=== PATIENT | female | born 1960 | race Caucasian/White ===

== ENCOUNTER 2016-08-06 14:02 | Inpatient (IN) | payer MEDICARE, MEDICAID ==
[2016-08-06] MEDS ORDERED: NORMAL SALINE 1000 ML 1,000 ML IV ONE ×2 (14:27→16:35)
--- NOTE | 2016-08-06 14:32 | ER Document Report ---
ED General - General Mode of Arrival: Medic Information source: Friend - caregiver Cannot obtain history due to: Mentally challenged, Altered mental status TRAVEL OUTSIDE OF THE [place] IN LAST 30 DAYS: No - HPI Onset: Other - see narrative Onset/Duration: Gradual Similar symptoms previously: No Recently seen / treated by doctor: Yes <ANTHONY SHAH - Last Filed: 08/06/16 17:54> <LARRY DUGAN - Last Filed: 08/06/16 22:28> - General Chief Complaint: Altered Mental Status Stated Complaint: ALTERED MENTAL STATUS Notes: Patient is a 56-year-old female with Down's Syndrome that presents to the emergency department today with complaints of "slowly declining health". Caregiver at bedside states that she is with the patient daily as a caregiver and she has noticed that the symptoms mentioned today have "slowly been progressing". Today the caregiver complains of twitching, decreased appetite, new inability to ambulate, and uncontrollably yelling and screaming. Caregiver states at baseline the patient is able to ambulate on her own and was able to carry out a normal conversation. Caregiver states that recently the patient has had an increase in her Risperdal dosage and Cogentin was added. Patient's medical decision maker according to caregiver is her sister who lives in [place] , Megan Linares, . PCP: Elsie Mazariegos (ANTHONY SHAH) - Related Data Allergies/Adverse Reactions: ampicillin [Ampicillin] Allergy (Unknown, Verified 06/29/14 09:53) Home Medications: Current Home Medications Benztropine Mesylate [Cogentin 1 mg Tablet] 1 mg PO DAILY 08/06/16 [History] Fluticasone Propionate [Flonase Nasal [place] 50 Mcg/[place] 16 gm] 2 spray NASL QAM 08/06/16 [History] Levothyroxine Sodium [Synthroid] 88 mg PO DAILY 08/06/16 [History] Lisinopril [Zestril] 5 mg PO DAILY 08/06/16 [History] Loratadine [Claritin 10 mg Tablet] 10 mg PO DAILY 08/06/16 [History] Nifedipine [Procardia XL 60 mg Tablet] 60 mg PO DAILY 08/06/16 [History] [place]-3/Dha/Epa/Fish Oil [Fish Oil 500 mg Softgel] 2 cap PO BID 08/06/16 [ History] Polyethylene Glycol 3350 [Miralax] 17 gm PO DAILY 08/06/16 [History] Risperidone [Risperdal 1 mg Tablet] 1 mg PO BID 08/06/16 [History] Simvastatin [Zocor 40 mg Tablet] 40 mg PO QHS 08/06/16 [History] Past Medical History - General Information source: [facility] Records - caregiver Cannot obtain history due to: Mentally challenged, Altered mental status - Social History Smoking Status: Never Smoker Cigarette use (# per day): No Chew tobacco use (# tins/day): No Smoking Education Provided: No Frequency of alcohol use: None Drug Abuse: None Lives with: Other - caregiver Family History: Reviewed & Not Pertinent - Past Medical History Cardiac Medical History: Reports: Hx Heart Murmur Pulmonary Medical History: GI Medical History: Musculoskeltal Medical History: Infectious Medical History: Surgical Hx: Negative Past Surgical History: - Immunizations Hx Diphtheria, Pertussis, Tetanus Vaccination: Yes <ANTHONY SHAH - Last Filed: 08/06/16 17:54> Review of Systems - Review of Systems -: Yes ROS unobtainable due to patient's medical condition - Given by caregiver at bedside Constitutional: See HPI, Other - decreased appetite EENT: No symptoms reported Cardiovascular: No symptoms reported Respiratory: No symptoms reported Gastrointestinal: No symptoms reported Genitourinary: No symptoms reported Female Genitourinary: No symptoms reported Musculoskeletal: See HPI, Joint pain - left knee/ankle Skin: No symptoms reported Hematologic/Lymphatic: No symptoms reported Neurological/Psychological: See HPI, Other - "twitching", uncharacteristic behavior (yelling and screaming uncontrollably) -: Yes All other systems reviewed and negative <ANTHONY SHAH - Last Filed: 08/06/16 17:54> Physical Exam <ANTHONY SHAH - Last Filed: 08/06/16 17:54> <LARRY DUGAN - Last Filed: 08/06/16 22:28> - Vital signs Vitals: Temp Pulse Resp BP Pulse Ox 97.2 F 77 12 149/112 H 98 08/06/16 14:14 08/06/16 14:14 08/06/16 14:14 08/06/16 14:14 08/06/16 14:14 - Notes Notes: Physical Exam: General: Down's Syndrome appearance consistent with history, somnolent. HEENT: Normocephalic. Atraumatic. PERRL. Extraocular movements intact. Oropharynx clear. Neck: Supple. Non-tender. Respiratory: No respiratory distress. Clear and equal breath sounds bilaterally. Cardiovascular: Regular rate and rhythm. Abdominal: Normal Inspection. Non-tender. No distension. Normal Bowel Sounds. Back: Non-tender. No deformity or step off. Extremities: Moves all four extremities. Neurological: Responds to painful stimuli. Tremulous. Psychological: unable to assess Skin: Warm. Dry. Normal color. (ANTHONY SHAH) Course - Laboratory Result Diagrams: 08/06/16 15:33 08/06/16 15:33 - Consults Dr. Rodriguez Time consulted: 17:30 Consulted provider: will see as inpatient <ANTHONY SHAH - Last Filed: 08/06/16 17:54> - Laboratory Result Diagrams: 08/06/16 15:33 08/06/16 15:33 <LARRY DUGAN - Last Filed: 08/06/16 22:28> - Re-evaluation Re-evalutation: 08/06/16 Patient is a 56-year-old female the history of Down syndrome who is brought in for altered mental status. Blood work within normal limits initially. Patient initially with stable heart rate and blood pressure, and then Patient began to become hypotensive. Responded to fluids. CT is concerning for pneumonia. Patient was also hypothermic on presentation. Patient was discussed with the hospitalist service. Cultures have been sent. Antibiotics will be initiated. Patient will be [facility] to the [facility]. (LARRY DUGAN) - Vital Signs Vital signs: Temp Pulse Resp BP Pulse Ox 97.2 F 77 20 106/91 H 100 08/06/16 14:14 08/06/16 14:14 08/06/16 20:01 08/06/16 21:01 08/06/16 21:01 - Laboratory Laboratory results interpreted by me: 08/06/16 08/06/16 08/06/16 15:33 15:33 15:33 RBC 3.62 L MCV 102 H MCH 33.9 H Potassium 5.2 H AST 45 H Alkaline Phosphatase 129 H Creatine Kinase 441 H TSH Free T3 pg/mL 08/06/16 15:33 RBC MCV MCH Potassium AST Alkaline Phosphatase Creatine Kinase TSH 7.59 H Free T3 pg/mL 2.66 L Critical Care Note - Critical Care Note Total time excluding time spent on procedures (mins): 90 - evaluation and management of altered mental status, multiple re-evaluations, assessment of hypothermia, management of hypotension, discussion with caregiver, coordination of admission <LARRY DUGAN - Last Filed: 08/06/16 22:28> Discharge <ANTHONY SHAH - Last Filed: 08/06/16 17:54> - Discharge Admitting Provider: [facility] Unit Admitted: I[facility] <LARRY DUGAN - Last Filed: 08/06/16 22:28> - Discharge Clinical Impression: Down syndrome Altered mental status Qualifiers: Altered mental status type: disorientation Qualified Code(s): R41.0 - Disorientation, unspecified Hypotension Qualifiers: Hypotension type: unspecified hypotension type Qualified Code(s): I95.9 - Hypotension, unspecified Pneumonia Qualifiers: Pneumonia type: due to unspecified organism Laterality: right Lung location: upper lobe of lung Qualified Code(s): J18.1 - Lobar pneumonia, unspecified organism Condition: Stable Disposition: ADMITTED INPATIENT Scribe Attestation: 08/06/16 22:28 I personally performed the services described in the documentation, reviewed and edited the documentation which was dictated to the scribe in my presence, and it accurately records my words and actions. (LARRY DUGAN) Scribe Documentation - Scribe Written by iCro:: Ciro Watters, 08/06/2016 1458 acting as scribe for :: Gloria <ANTHONY SHAH - Last Filed: 08/06/16 17:54>
[2016-08-06 15:52] LABS: ABSOLUTE BASOPHILS # (AUTO) 0.1 10^3/uL (0.0-0.2); ABSOLUTE LYMPHOCYTES (AUTO) 0.7 10^3/uL (0.5-4.7); ABSOLUTE MONOCYTES (AUTO) 0.4 10^3/uL (0.1-1.4); ABSOLUTE NEUT (AUTO) 4.5 10^3/uL (1.7-8.2); EOSINOPHILS % (AUTO) 0.8 % (0-6); HEMATOCRIT 36.8 % (36.0-47.0); HEMOGLOBIN 12.3 g/dL (12.0-15.5); HGB HCT DIFFERENCE 0.1; MEAN CORPUSCULAR HEMOGLOBIN 33.9 pg (27.0-33.4); MEAN CORPUSCULAR HGB CONC 33.3 g/dL (32.0-36.0); MEAN CORPUSCULAR VOLUME 102 fl (80-97); MONOCYTES % (AUTO) 7.4 % (3-13); RED BLOOD COUNT 3.62 10^6/uL (3.72-5.28); SEGMENTED NEUTROPHILS % (AUTO) 77.8 % (42-78); VENOUS BLOOD BASE EXCESS 1.8 mmol/L; VENOUS BLOOD HCO3 28.2 mmol/L (20-32); VENOUS BLOOD PH 7.37 (7.30-7.42); WHITE BLOOD COUNT 5.7 10^3/uL (4.0-10.5)
[2016-08-06 15:59] LABS: PROTHROMBIN TIME 13.5 SEC (11.4-15.4)
[2016-08-06 16:20] LABS: ALANINE AMINOTRANSFERASE 36 U/L (9-52); ALBUMIN 3.8 g/dL (3.5-5.0); ALKALINE PHOSPHATASE 129 U/L (38-126); ANION GAP 11 (5-19); ASPARTATE AMINO TRANSFERASE 45 U/L (14-36); BILIRUBIN,DIRECT 0.4 mg/dL (0.0-0.4); BLOOD UREA NITROGEN 14 mg/dL (7-20); CALCIUM 9.8 mg/dL (8.4-10.2); CARBON DIOXIDE 28 mmol/L (22-30); CHLORIDE 103 mmol/L (98-107); CREATININE RESULT 0.96 mg/dL (0.52-1.25); GLUCOSE 110 mg/dL (75-110); POTASSIUM 5.2 mmol/L (3.6-5.0); SODIUM 141.6 mmol/L (137-145)
[2016-08-06 16:41] LABS: APPEARANCE,URINE CLEAR; BILIRUBIN,URINE NEGATIVE (NEGATIVE); GLUCOSE, URINE NEGATIVE (NEGATIVE); KETONES,URINE NEGATIVE (NEGATIVE); LEUKOCYTE ESTERASE,URINE NEGATIVE (NEGATIVE); NITRITE,URINE NEGATIVE (NEGATIVE); PROTEIN,URINE NEGATIVE (NEGATIVE); URINE SPECIFIC GRAVITY 1.006; UROBILINOGEN,URINE NEGATIVE mg/dL (<2.0)
[2016-08-06 17:19] LABS: CREATINE KINASE MB 4.14 ng/mL (<4.55)
[2016-08-06 17:23] LABS: TROPONIN I < 0.012 ng/mL
--- NOTE | 2016-08-06 17:29 | EKG REPORT ---
SEVERITY:- BORDERLINE ECG - SINUS RHYTHM NONSPECIFIC ST-T CHANGES- INFERIOR LEADS : Confirmed by: Leon Villegas MD 06-Aug-2016 17:28:27
[2016-08-06] MEDS ORDERED: CEFTRIAXONE 1 GM/D5W RTU 50 ML IV ONE (18:19)
[2016-08-06] MEDS ORDERED: ACETAMINOPHEN 325 MG TABLET PO PRN (18:25)
[2016-08-06] MEDS ORDERED: NORMAL SALINE 1000 ML 1,000 ML IV PRN (18:25)
[2016-08-06] MEDS ORDERED: LEVALBUTEROL HCL NEB 1.25 MG/3 ML AMPUL NEB PRN (18:25)
[2016-08-06] MEDS ORDERED: GUAIFENESIN SYRP 200 MG/10 ML UDC PO PRN (18:30)
[2016-08-06] MEDS ORDERED: NORMAL SALINE 1000 ML 2,000 ML IV ONE (18:37)
--- NOTE | 2016-08-06 19:16 | PDOC H&P ---
History of Present Illness Admission Date/PCP: 08/06/2016 History of Present Illness: ABBEY TALBOT is a 56 year old female with a past medical history of Down syndrome, mental retardation, hyperlipidemia, hypothyroidism, behavior disorder , and aortic regurgitation who presents to the emergency department with 2 days of minimal unresponsiveness. Patient is in the company of her caregiver reports that she was last normal Friday morning. Approximately 2 weeks ago patient was started on Risperdal and began having some jerking motions after this and subsequent started on Cogentin. Patient normally has a shuffle according to the special education teaching assistant and is now worse. She did complain of some left knee pain. And Friday was started on tramadol. Patient currently responds to pain and some commands, but is far from her baseline. CT of the chest abdomen and pelvis reveals possible right upper lobe infiltrate and cardiomegaly. Patient is referred to the hospital service for pneumonia, hypotension, sepsis. Past Medical History Cardiac Medical History: Reports: Hyperlipidema, Heart Murmur Denies: Coronary Artery Disease, Myocardial Infarction, Hypertension Pulmonary Medical History: Denies: Asthma, Bronchitis, Chronic Obstructive Pulmonary Disease (COPD), Pneumonia Neurological Medical History: Denies: Seizures GI Medical History: Musculoskeltal Medical History: Denies: Arthritis Hematology: Denies: Anemia Past Surgical History Past Surgical History: Unable to obtain secondary to mental status and and availability of power of divorce attorney Past Surgical History: Reports: Other Social History Lives with: Other - caregiver Smoking Status: Never Smoker Frequency of Alcohol Use: None Hx Recreational Drug Use: No Hx Prescription Drug Abuse: No - Advance Directive Resuscitation Status: Other Surrogate healthcare decision maker:: Sister Family History Parental Family History Reviewed: No - unable to obtain due to mental status Children Family History Reviewed: No Sibling(s) Family History Reviewed.: No Medication/Allergy Home Medications: Benztropine Mesylate [Cogentin 1 mg Tablet] 1 mg PO DAILY 08/06/16 Fluticasone Propionate [Flonase Nasal [place] 50 Mcg/[place] 16 gm] 2 spray NASL QAM 08/06/16 Levothyroxine Sodium [Synthroid] 88 mg PO DAILY 08/06/16 Lisinopril [Zestril] 5 mg PO DAILY 08/06/16 Loratadine [Claritin 10 mg Tablet] 10 mg PO DAILY 08/06/16 Nifedipine [Procardia XL 60 mg Tablet] 60 mg PO DAILY 08/06/16 [place]-3/Dha/Epa/Fish Oil [Fish Oil 500 mg Softgel] 2 cap PO BID 08/06/16 Polyethylene Glycol 3350 [Miralax] 17 gm PO DAILY 08/06/16 Risperidone [Risperdal 1 mg Tablet] 1 mg PO BID 08/06/16 Simvastatin [Zocor 40 mg Tablet] 40 mg PO QHS 08/06/16 Allergies/Adverse Reactions: ampicillin [Ampicillin] Allergy (Unknown, Verified 06/29/14 09:53) Review of Systems ROS unobtainable: Due to mental status Physical Exam Vital Signs: Temp Pulse Resp BP Pulse Ox 97.2 F 77 14 88/51 L 100 08/06/16 14:14 08/06/16 14:14 08/06/16 18:00 08/06/16 17:01 08/06/16 18:00 General appearance: PRESENT: mild distress, obese, well-developed, well- nourished Head exam: PRESENT: atraumatic, normocephalic Eye exam: PRESENT: conjunctival injection, conjunctiva pink, EOMI, periorbital swelling, PERRLA. ABSENT: scleral icterus Ear exam: PRESENT: normal external ear exam Mouth exam: PRESENT: dry mucosa, tongue midline, other - Large tongue Throat exam: PRESENT: other - Torres neck Neck exam: ABSENT: JVD, lymphadenopathy, thyromegaly, tracheal deviation Respiratory exam: PRESENT: crackles - Right upper lobe, rhonchi - Right upper lobe, symmetrical, tachypnea, unlabored. ABSENT: accessory muscle use, prolonged expiratory phas, rales, retraction, wheezes Cardiovascular exam: PRESENT: RRR, +S1, +S2, systolic murmur. ABSENT: diastolic murmur, rubs Pulses: PRESENT: normal dorsalis pedis pul Vascular exam: ABSENT: normal capillary refill - Greater than 10 seconds GI/Abdominal exam: PRESENT: hypoactive bowel sounds, normal bowel sounds, soft. ABSENT: distended, firm, guarding, mass, Vee's sign, organolmegaly, rebound , rigid, tenderness Rectal exam: PRESENT: deferred Extremities exam: PRESENT: full ROM. ABSENT: clubbing, pedal edema, tenderness Neurological exam: PRESENT: alert, awake, oriented to person, oriented to place , oriented to time, oriented to situation, CN II-XII grossly intact. ABSENT: motor sensory deficit Psychiatric exam: PRESENT: appropriate affect, normal mood. ABSENT: homicidal ideation, suicidal ideation Skin exam: PRESENT: dry, vesicles - Left knee, warm. ABSENT: cyanosis, intact, rash Results Laboratory Results: 08/06/16 15:33 08/06/16 15:33 08/06/16 08/06/16 08/06/16 15:33 15:33 15:33 WBC 5.7 RBC 3.62 L Hgb 12.3 Hct 36.8 MCV 102 H MCH 33.9 H MCHC 33.3 RDW 14.0 Plt Count 204 Seg Neutrophils % 77.8 Lymphocytes % 13.0 Monocytes % 7.4 Eosinophils % 0.8 Basophils % 1.0 Absolute Neutrophils 4.5 Absolute Lymphocytes 0.7 Absolute Monocytes 0.4 Absolute Eosinophils 0.0 Absolute Basophils 0.1 VBG pH VBG pCO2 VBG HCO3 VBG Base Excess Sodium 141.6 Potassium 5.2 H Chloride 103 Carbon Dioxide 28 Anion Gap 11 BUN 14 Creatinine 0.96 Est GFR ( Amer) > 60 Est GFR (Non-Af Amer) > 60 Glucose 110 Lactic Acid 0.9 Calcium 9.8 Total Bilirubin 1.0 AST 45 H ALT 36 Alkaline Phosphatase 129 H Total Protein 7.0 Albumin 3.8 Serum HCG, Qual Urine Color Urine Appearance Urine pH Ur Specific [place] Urine Protein Urine Glucose (UA) Urine Ketones Urine Blood Urine Nitrite Ur Leukocyte Esterase Urine WBC (Auto) Urine RBC (Auto) 08/06/16 08/06/16 08/06/16 15:33 15:33 16:30 WBC RBC Hgb Hct MCV MCH MCHC RDW Plt Count Seg Neutrophils % Lymphocytes % Monocytes % Eosinophils % Basophils % Absolute Neutrophils Absolute Lymphocytes Absolute Monocytes Absolute Eosinophils Absolute Basophils VBG pH 7.37 VBG pCO2 50.0 VBG HCO3 28.2 VBG Base Excess 1.8 Sodium Potassium Chloride Carbon Dioxide Anion Gap BUN Creatinine Est GFR ( Amer) Est GFR (Non-Af Amer) Glucose Lactic Acid Calcium Total Bilirubin AST ALT Alkaline Phosphatase Total Protein Albumin Serum HCG, Qual NEGATIVE Urine Color YELLOW Urine Appearance CLEAR Urine pH 7.0 Ur Specific [place] 1.006 Urine Protein NEGATIVE Urine Glucose (UA) NEGATIVE Urine Ketones NEGATIVE Urine Blood NEGATIVE Urine Nitrite NEGATIVE Ur Leukocyte Esterase NEGATIVE Urine WBC (Auto) 1 Urine RBC (Auto) 0 08/06/16 08/06/16 15:33 15:33 Creatine Kinase 441 H CK-MB (CK-2) 4.14 Troponin I < 0.012 Impressions: Chest X-Ray 08/06/16 00:00 IMPRESSION: Limited study. No acute changes Head CT 08/06/16 14:32 IMPRESSION: Motion artifact. No acute changes. Chest/Abdomen CTA 08/06/16 16:47 IMPRESSION: 1. Mild reticular nodularity and interstitial prominence of the right upper lobe may indicate chronic interstitial lung disease or atypical pneumonia. No evidence of pulmonary embolus. 2. No acute or suspicious findings of the abdomen. Abdomen/Pelvis CT 08/06/16 16:48 IMPRESSION: 1. Mild reticular nodularity and interstitial prominence of the right upper lobe may indicate chronic interstitial lung disease or atypical pneumonia. No evidence of pulmonary embolus. 2. No acute or suspicious findings of the abdomen. Assessment & Plan - Diagnosis (1) Sepsis Qualifiers: Sepsis type: sepsis due to unspecified organism Qualified Code(s): A41.9 - Sepsis, unspecified organism Is this a current diagnosis for this admission?: YesPlan: This is likely secondary to underlying right upper lobe pneumonia. (2) Altered mental status Qualifiers: Altered mental status type: disorientation Qualified Code(s): R41.0 - Disorientation, unspecified Is this a current diagnosis for this admission?: YesPlan: Feel this is likely secondary to sepsis. Patient appears to be improving somewhat with the initiation of IV fluids. (3) Pneumonia Qualifiers: Pneumonia type: due to unspecified organism Laterality: right Lung location: upper lobe of lung Qualified Code(s): J18.1 - Lobar pneumonia, unspecified organism Is this a current diagnosis for this admission?: YesPlan: Will initiate patient on community-acquired pneumonia with concern for an atypical organism. Initiate patient on Rocephin and Levaquin. Initiate on guaifenesin and pulmonary toilet. Obtain sputum and cultures. Also obtain urine culture. (4) Down syndrome Is this a current diagnosis for this admission?: YesPlan: Will place on bed alarm with sitter. (5) Hypothyroidism Qualifiers: Hypothyroidism type: unspecified Qualified Code(s): E03.9 - Hypothyroidism, unspecified Is this a current diagnosis for this admission?: YesPlan: Will check a TSH, free T3 and free T4. Continue Synthroid in the interim. (6) Hypotension Qualifiers: Hypotension type: unspecified hypotension type Qualified Code(s): I95.9 - Hypotension, unspecified Is this a current diagnosis for this admission?: YesPlan: Feel that this is likely secondary to her sepsis and continued administration of her medication despite illness. Will give patient 2 L bolus to give her a total of 4 L bolus. Goal to maintain a map of 65. (7) Tardive dyskinesia Is this a current diagnosis for this admission?: YesPlan: Will place patient on 50 mg of Benadryl by mouth daily at bedtime. However have concerns that these movements may be secondary to hypercarbia and we will obtain an ABG. (8) Aortic regurgitation Qualifiers: Cardiac valve disease etiology: etiology unspecified Qualified Code( s): I35.1 - Nonrheumatic aortic (valve) insufficiency Is this a current diagnosis for this admission?: YesPlan: Will consider repeat echocardiography. (9) Obesity Qualifiers: Obesity type: unspecified obesity type Obesity severity: unspecified obesity severity Qualified Code(s): E66.9 - Obesity, unspecified Is this a current diagnosis for this admission?: YesPlan: Will consult dietary. - Time Time Spent: 50 to 70 Minutes Medications reviewed and adjusted accordingly: Yes - Inpatient Certification Based on my medical assessment, after consideration of the patient's comorbidities, presenting symptoms, or acuity I expect that the services needed warrant INPATIENT care.: Yes I certify that my determination is in accordance with my understanding of Medicare's requirements for reasonable and necessary INPATIENT services [42 CFR 412.3e].: Yes Medical Necessity: Need For IV Fluids, Need For Continuous Telemetry Monitoring , Need for Nebulizer Therapy and Monitoring of Response, Need for IV Antibiotics , Risk of Complication if Not Cared For in Hospital Post Hospital Care: D/C B[employer] Operators Supervisor Documentation
[2016-08-06 19:53] LABS: FREE T3 2.66 pg/mL (2.77-5.27)
[2016-08-06 20:06] LABS: THYROID STIMULATING HORMONE 7.59 uIU/mL (0.47-4.68)
[2016-08-06] MEDS: IPRATROPIUM/ALBUTEROL 0.5-2.5 MG/3 ML AMPUL NEB SCH (20:19)
[2016-08-06] MEDS: DIPHENHYDRAMINE HCL 50 MG CAPSULE PO SCH (22:58)
[2016-08-06] MEDS: OMEGA-3 ACID ETHYL ESTERS 1 GM CAPSULE PO SCH (22:58)
[2016-08-06] MEDS: LEVOFLOXACIN 750 MG/D5W RTU 750 MG/150 ML RTUPB IV SCH (23:02)
[2016-08-07 00:55] LABS: ARTERIAL BLOOD BASE EXCESS -1.2 mmol/L; ARTERIAL BLOOD O2 SATURATION 96.9 % (94-98)
[2016-08-07 03:59] LABS: ANION GAP 11 (5-19); BLOOD UREA NITROGEN 9 mg/dL (7-20); CALCIUM 8.9 mg/dL (8.4-10.2); CARBON DIOXIDE 23 mmol/L (22-30); CHLORIDE 112 mmol/L (98-107); CREATININE RESULT 0.77 mg/dL (0.52-1.25); GLUCOSE 102 mg/dL (75-110); POTASSIUM 4.7 mmol/L (3.6-5.0); SODIUM 145.6 mmol/L (137-145)
[2016-08-07 04:01] LABS: ABSOLUTE EOSINOPHILS # (AUTO) 0.1 10^3/uL (0.0-0.6); ABSOLUTE LYMPHOCYTES (AUTO) 1.1 10^3/uL (0.5-4.7); ABSOLUTE MONOCYTES (AUTO) 0.6 10^3/uL (0.1-1.4); ABSOLUTE NEUT (AUTO) 5.3 10^3/uL (1.7-8.2); BASOPHILS % (AUTO) 0.6 % (0-2); EOSINOPHILS % (AUTO) 0.7 % (0-6); HEMATOCRIT 33.6 % (36.0-47.0); HEMOGLOBIN 11.7 g/dL (12.0-15.5); HGB HCT DIFFERENCE 1.5; MEAN CORPUSCULAR HEMOGLOBIN 35.1 pg (27.0-33.4); MEAN CORPUSCULAR HGB CONC 34.9 g/dL (32.0-36.0); MEAN CORPUSCULAR VOLUME 101 fl (80-97); MONOCYTES % (AUTO) 8.5 % (3-13); RED BLOOD COUNT 3.35 10^6/uL (3.72-5.28); RED CELL DISTRIBUTION WIDTH 13.8 % (11.5-14.0); SEGMENTED NEUTROPHILS % (AUTO) 74.2 % (42-78); WHITE BLOOD COUNT 7.2 10^3/uL (4.0-10.5)
[2016-08-07] MEDS: LANSOPRAZOLE 15 MG TAB.RAP.DR PO SCH ×2 (05:38→18:13)
[2016-08-07] MEDS ORDERED: LEVOTHYROXINE SODIUM 0.088 MG TABLET PO SCH ×2 (08:00)
[2016-08-07] MEDS: IPRATROPIUM/ALBUTEROL 0.5-2.5 MG/3 ML AMPUL NEB SCH ×4 (08:06→20:17)
[2016-08-07] MEDS ORDERED: EPA PO SCH (10:00)
[2016-08-07] MEDS ORDERED: DHA PO SCH (10:00)
[2016-08-07] MEDS ORDERED: (PENDING PHARMACY ID) (Polyethylene Glycol 3350 [Miralax] 17 GM) PO SCH (10:00)
[2016-08-07] MEDS ORDERED: OMEGA PO SCH (10:00)
[2016-08-07] MEDS ORDERED: FISH OIL PO SCH (10:00)
[2016-08-07] MEDS ORDERED: NORMAL SALINE 1000 ML 1,000 ML IV PRN (10:21)
[2016-08-07] MEDS: ENOXAPARIN SODIUM INJ 40 MG/0.4 ML DISP.SYRIN SUBCUT SCH (10:36)
[2016-08-07] MEDS: OMEGA-3 ACID ETHYL ESTERS 1 GM CAPSULE PO SCH ×2 (10:37→21:23)
[2016-08-07] MEDS: LEVOTHYROXINE SODIUM 0.1 MG TABLET PO SCH (10:37)
[2016-08-07] MEDS: LACTOBACILLUS ACIDOPHILUS 250 MG TAB PO SCH ×2 (10:38→18:13)
[2016-08-07] MEDS: FLUTICASONE NASAL SPRAY 50 MCG/SPRY 120 SPRAY/16 GM NASL SCH (10:38)
[2016-08-07] MEDS: POLYETHYLENE GLYCOL 3350 POWDER 17 GM/1 PACKET PO SCH (10:38)
[2016-08-07] MEDS: LORATADINE 10 MG TABLET PO SCH (10:38)
[2016-08-07 13:08] LABS: URINE CREATININE 16.5 mg/dL (15-278)
--- NOTE | 2016-08-07 15:21 | PDOC PROGRESS REPORT ---
Subjective Progress Note for:: 08/07/16 Subjective:: Patient reports she's breathing better than yesterday. She is awake. Her mental retardation does limit the full review of systems. She denies any complaints. She does state she doesn't feel very well. Physical Exam Vital Signs: Temp Pulse Resp BP Pulse Ox 98.6 F 106 H 16 122/50 L 93 08/07/16 05:35 08/07/16 05:35 08/07/16 05:35 08/07/16 03:24 08/07/16 05:35 Intake & Output 08/06/16 08/07/16 08/08/16 06:59 06:59 06:59 Intake Total 2800 Output Total 5500 Balance -2700 Weight 71.7 kg Exam: General: Awake alert and answers questions somewhat appropriately, no acute respiratory distress HEENT: AT/NC, PERRL, EOMI, oropharynx is dry, pink, no scleral icterus, no conjunctival injection Neck: No JVD, trachea midline Chest: Rhonchi right upper lobe CV: Regular rate and rhythm, normal S1 and S2, no rub or gallop; +3/6 sm rusb Abdomen: Soft, nontender to palpation, nondistended, active bowel sounds; no rebound, rigidity, or guarding Extremities: No cyanosis, clubbing or edema Neuro: Cranial nerves II through XII are grossly intact without focal deficits Psych: Normal mood and affect Results Laboratory Results: 08/07/16 03:40 08/07/16 03:40 08/07/16 08/07/16 08/07/16 00:47 03:40 03:40 WBC 7.2 RBC 3.35 L Hgb 11.7 L Hct 33.6 L MCV 101 H MCH 35.1 H MCHC 34.9 RDW 13.8 Plt Count 169 Seg Neutrophils % 74.2 Lymphocytes % 16.0 Monocytes % 8.5 Eosinophils % 0.7 Basophils % 0.6 Absolute Neutrophils 5.3 Absolute Lymphocytes 1.1 Absolute Monocytes 0.6 Absolute Eosinophils 0.1 Absolute Basophils 0.0 Carbonic Acid 1.08 HCO3/H2CO3 Ratio 21:1 ABG pH 7.42 ABG pCO2 35.9 ABG pO2 87.8 ABG HCO3 22.9 ABG O2 Saturation 96.9 ABG Base Excess -1.2 FiO2 2L Sodium 145.6 H Potassium 4.7 Chloride 112 H Carbon Dioxide 23 Anion Gap 11 BUN 9 Creatinine 0.77 Est GFR ( Amer) > 60 Est GFR (Non-Af Amer) > 60 Glucose 102 Calcium 8.9 08/06/16 08/07/16 21:38 03:40 Troponin I 0.012 0.017 Impressions: Chest X-Ray 08/06/16 00:00 IMPRESSION: Limited study. No acute changes Head CT 08/06/16 14:32 IMPRESSION: Motion artifact. No acute changes. Chest/Abdomen CTA 08/06/16 16:47 IMPRESSION: 1. Mild reticular nodularity and interstitial prominence of the right upper lobe may indicate chronic interstitial lung disease or atypical pneumonia. No evidence of pulmonary embolus. 2. No acute or suspicious findings of the abdomen. Abdomen/Pelvis CT 08/06/16 16:48 IMPRESSION: 1. Mild reticular nodularity and interstitial prominence of the right upper lobe may indicate chronic interstitial lung disease or atypical pneumonia. No evidence of pulmonary embolus. 2. No acute or suspicious findings of the abdomen. Assessment & Plan - Diagnosis (1) Sepsis Qualifiers: Sepsis type: sepsis due to unspecified organism Qualified Code(s): A41.9 - Sepsis, unspecified organism Is this a current diagnosis for this admission?: YesPlan: This is likely secondary to underlying right upper lobe pneumonia. (2) Altered mental status Qualifiers: Altered mental status type: disorientation Qualified Code(s): R41.0 - Disorientation, unspecified Is this a current diagnosis for this admission?: YesPlan: Feel this is likely secondary to sepsis. Patient appears to be improving but is not yet close to baseline. Continue sitter. (3) Pneumonia Qualifiers: Pneumonia type: due to unspecified organism Laterality: right Lung location: upper lobe of lung Qualified Code(s): J18.1 - Lobar pneumonia, unspecified organism Is this a current diagnosis for this admission?: YesPlan: Patient receiving treatment for community-acquired pneumonia with concern for an atypical organism. Patient on Rocephin and Levaquin, day #2 of 10. On guaifenesin and pulmonary toilet. Obtain sputum culture. (4) Down syndrome Is this a current diagnosis for this admission?: YesPlan: Will place on bed alarm with sitter. (5) Hypothyroidism Qualifiers: Hypothyroidism type: unspecified Qualified Code(s): E03.9 - Hypothyroidism, unspecified Is this a current diagnosis for this admission?: YesPlan: Patient's TSH is found to be elevated and her free T4 and free T3 are found to be low. Will increase her to 100 g of Synthroid by mouth every 6 a.m. (6) Hypotension Qualifiers: Hypotension type: unspecified hypotension type Qualified Code(s): I95.9 - Hypotension, unspecified Is this a current diagnosis for this admission?: YesPlan: This has resolved. Will decrease IV fluids and encourage by mouth intake of fluid. (7) Tardive dyskinesia Is this a current diagnosis for this admission?: YesPlan: Will place patient on 50 mg of Benadryl by mouth daily at bedtime. Movements appear to have resolved now that Risperdal and Cogentin have been stopped. (8) Aortic regurgitation Qualifiers: Cardiac valve disease etiology: etiology unspecified Qualified Code( s): I35.1 - Nonrheumatic aortic (valve) insufficiency Is this a current diagnosis for this admission?: YesPlan: Will consider repeat echocardiography. (9) Obesity Qualifiers: Obesity type: unspecified obesity type Obesity severity: unspecified obesity severity Qualified Code(s): E66.9 - Obesity, unspecified Is this a current diagnosis for this admission?: YesPlan: Will consult dietary. 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
[2016-08-07] MEDS: CEFTRIAXONE 1 GM/D5W RTU 1 GM/50 ML RTUPB IV SCH (18:12)
[2016-08-07] MEDS: LEVOFLOXACIN 750 MG/D5W RTU 750 MG/150 ML RTUPB IV SCH (21:21)
[2016-08-07] MEDS: DIPHENHYDRAMINE HCL 50 MG CAPSULE PO SCH (21:24)
[2016-08-07] MEDS: NORMAL SALINE 1000 ML 1,000 ML IV PRN (21:24)
[2016-08-08 04:28] LABS: ABSOLUTE LYMPHOCYTES (AUTO) 0.8 10^3/uL (0.5-4.7); ABSOLUTE MONOCYTES (AUTO) 0.4 10^3/uL (0.1-1.4); ABSOLUTE NEUT (AUTO) 5.9 10^3/uL (1.7-8.2); BASOPHILS % (AUTO) 0.6 % (0-2); EOSINOPHILS % (AUTO) 0.6 % (0-6); HEMATOCRIT 32.3 % (36.0-47.0); HEMOGLOBIN 11.3 g/dL (12.0-15.5); HGB HCT DIFFERENCE 1.6; LYMPHOCYTES % (AUTO) 11.4 % (13-45); MEAN CORPUSCULAR VOLUME 100 fl (80-97); MONOCYTES % (AUTO) 6.1 % (3-13); RED BLOOD COUNT 3.23 10^6/uL (3.72-5.28); SEGMENTED NEUTROPHILS % (AUTO) 81.3 % (42-78); WHITE BLOOD COUNT 7.3 10^3/uL (4.0-10.5)
[2016-08-08 04:45] LABS: ANION GAP 10 (5-19); BLOOD UREA NITROGEN 8 mg/dL (7-20); CALCIUM 8.9 mg/dL (8.4-10.2); CARBON DIOXIDE 26 mmol/L (22-30); CHLORIDE 107 mmol/L (98-107); GLUCOSE 91 mg/dL (75-110); POTASSIUM 4.2 mmol/L (3.6-5.0); SODIUM 142.5 mmol/L (137-145)
[2016-08-08] MEDS: LANSOPRAZOLE 15 MG TAB.RAP.DR PO SCH ×2 (06:11→16:47)
[2016-08-08] MEDS: LEVOTHYROXINE SODIUM 0.1 MG TABLET PO SCH (07:59)
[2016-08-08] MEDS: ENOXAPARIN SODIUM INJ 40 MG/0.4 ML DISP.SYRIN SUBCUT SCH (07:59)
[2016-08-08] MEDS: IPRATROPIUM/ALBUTEROL 0.5-2.5 MG/3 ML AMPUL NEB SCH ×4 (08:05→20:44)
[2016-08-08] MEDS: LORATADINE 10 MG TABLET PO SCH (09:08)
[2016-08-08] MEDS: FLUTICASONE NASAL SPRAY 50 MCG/SPRY 120 SPRAY/16 GM NASL SCH (09:09)
[2016-08-08] MEDS: LACTOBACILLUS ACIDOPHILUS 250 MG TAB PO SCH ×2 (09:09→16:47)
[2016-08-08] MEDS: OMEGA-3 ACID ETHYL ESTERS 1 GM CAPSULE PO SCH ×2 (09:09→21:53)
[2016-08-08] MEDS: POLYETHYLENE GLYCOL 3350 POWDER 17 GM/1 PACKET PO SCH (09:09)
--- NOTE | 2016-08-08 09:30 | Physician Advisory Note ---
Physician Advisor ProgressNote .: Pursuant to the plan for [facility], I have reviewed the medical record for this patient. Physician Advisor Statement: Dx.s to consider documentin. "Acute Hypernatremia, likely due to ____" [AMS w/associated decreased liquid intake causing intravascular volume depletion?] 2. "Hypoxemia" (Came in w/sat 98% on 5L O2, sat dropped to 82% & 75% on __L O2 on 1st PM per VS record, & O2 was given - if there was evidence of increased work of breathing at the time, we could capture dx Ac Resp Failure) For coders: Pt came in w/hypothermia, AMS (total GCS of 9), then became hypotensive to 77/ 41 (after initial hypertension), tachypneic, tachycardic, w/hypoxemia - these findings support dx of sepsis due to RUL atypical PNA. She therefore met both Sepsis-2 & Sepsis-3 dx-ic criteria. CK
[2016-08-08] MEDS: NORMAL SALINE 1000 ML 1,000 ML IV PRN (15:34)
[2016-08-08] MEDS: CEFTRIAXONE 1 GM/D5W RTU 1 GM/50 ML RTUPB IV SCH (16:48)
--- NOTE | 2016-08-08 19:02 | PDOC PROGRESS REPORT ---
Subjective Progress Note for:: 08/08/16 Subjective:: Patient seen earlier today on morning rounds. Patient reports she's breathing better than yesterday. She is resting comfortably. Her mental retardation does limit the full review of systems. She denies any complaints. Physical Exam Vital Signs: Temp Pulse Resp BP Pulse Ox 98.6 F 75 24 H 111/43 L 95 08/08/16 11:32 08/08/16 15:34 08/08/16 15:34 08/08/16 11:32 08/08/16 15:34 Intake & Output 08/07/16 08/08/16 08/09/16 06:59 06:59 06:59 Intake Total 2800 1400 Output Total 5500 3425 Balance -2699 -2024 Weight 71.7 kg 69.1 kg Results Laboratory Results: 08/08/16 04:13 08/08/16 04:13 08/08/16 08/08/16 04:13 04:13 WBC 7.3 RBC 3.23 L Hgb 11.3 L Hct 32.3 L MCV 100 H MCH 35.0 H MCHC 35.0 RDW 14.0 Plt Count 152 Seg Neutrophils % 81.3 H Lymphocytes % 11.4 L Monocytes % 6.1 Eosinophils % 0.6 Basophils % 0.6 Absolute Neutrophils 5.9 Absolute Lymphocytes 0.8 Absolute Monocytes 0.4 Absolute Eosinophils 0.0 Absolute Basophils 0.0 Sodium 142.5 Potassium 4.2 Chloride 107 Carbon Dioxide 26 Anion Gap 10 BUN 8 Creatinine 0.90 Est GFR ( Amer) > 60 Est GFR (Non-Af Amer) > 60 Glucose 91 Calcium 8.9 08/06/16 08/07/16 21:38 03:40 Troponin I 0.012 0.017 Impressions: Chest X-Ray 08/06/16 00:00 IMPRESSION: Limited study. No acute changes Head CT 08/06/16 14:32 IMPRESSION: Motion artifact. No acute changes. Chest/Abdomen CTA 08/06/16 16:47 IMPRESSION: 1. Mild reticular nodularity and interstitial prominence of the right upper lobe may indicate chronic interstitial lung disease or atypical pneumonia. No evidence of pulmonary embolus. 2. No acute or suspicious findings of the abdomen. Abdomen/Pelvis CT 08/06/16 16:48 IMPRESSION: 1. Mild reticular nodularity and interstitial prominence of the right upper lobe may indicate chronic interstitial lung disease or atypical pneumonia. No evidence of pulmonary embolus. 2. No acute or suspicious findings of the abdomen. Assessment & Plan - Diagnosis (1) Sepsis Qualifiers: Sepsis type: sepsis due to unspecified organism Qualified Code(s): A41.9 - Sepsis, unspecified organism Is this a current diagnosis for this admission?: YesPlan: This is likely secondary to underlying right upper lobe pneumonia. (2) Altered mental status Qualifiers: Altered mental status type: disorientation Qualified Code(s): R41.0 - Disorientation, unspecified Is this a current diagnosis for this admission?: YesPlan: Feel this is likely secondary to sepsis. Patient appears to be improving but is not yet close to baseline. Continue sitter. (3) Pneumonia Qualifiers: Pneumonia type: due to unspecified organism Laterality: right Lung location: upper lobe of lung Qualified Code(s): J18.1 - Lobar pneumonia, unspecified organism Is this a current diagnosis for this admission?: YesPlan: Patient receiving treatment for community-acquired pneumonia with concern for an atypical organism. Patient on Rocephin and Levaquin, day #3 of 10. On guaifenesin and pulmonary toilet. Obtain sputum culture. (4) Down syndrome Is this a current diagnosis for this admission?: YesPlan: Will place on bed alarm with sitter. Supportive care. (5) Hypothyroidism Qualifiers: Hypothyroidism type: unspecified Qualified Code(s): E03.9 - Hypothyroidism, unspecified Is this a current diagnosis for this admission?: YesPlan: Patient's TSH is found to be elevated and her free T4 and free T3 are found to be low. Now on 100 g of Synthroid by mouth every 6 a.m. (6) Hypotension Qualifiers: Hypotension type: unspecified hypotension type Qualified Code(s): I95.9 - Hypotension, unspecified Is this a current diagnosis for this admission?: Yes (7) Tardive dyskinesia Is this a current diagnosis for this admission?: YesPlan: Will place patient on 50 mg of Benadryl by mouth daily at bedtime. Movements appear to have resolved now that Risperdal and Cogentin have been stopped. (8) Aortic regurgitation Qualifiers: Cardiac valve disease etiology: etiology unspecified Qualified Code( s): I35.1 - Nonrheumatic aortic (valve) insufficiency Is this a current diagnosis for this admission?: Yes (9) Obesity Qualifiers: Obesity type: unspecified obesity type Obesity severity: unspecified obesity severity Qualified Code(s): E66.9 - Obesity, unspecified Is this a current diagnosis for this admission?: Yes (10) Hypernatremia Is this a current diagnosis for this admission?: YesPlan: Secondary to intravascular volume depletion. (11) Acute hypoxemic respiratory failure Is this a current diagnosis for this admission?: YesPlan: Continue oxygen to maintain saturation greater than 94%. Secondary to underlying pneumonia. - Time Time Spent with patient: 25-34 minutes Medications reviewed and adjusted accordingly: Yes
[2016-08-08] MEDS: DIPHENHYDRAMINE HCL 50 MG CAPSULE PO SCH (21:53)
[2016-08-08] MEDS: LEVOFLOXACIN 750 MG TABLET PO SCH (21:53)
[2016-08-09 06:15] LABS: ABSOLUTE BASOPHILS # (AUTO) 0.1 10^3/uL (0.0-0.2); ABSOLUTE EOSINOPHILS # (AUTO) 0.1 10^3/uL (0.0-0.6); ABSOLUTE LYMPHOCYTES (AUTO) 0.7 10^3/uL (0.5-4.7); ABSOLUTE MONOCYTES (AUTO) 0.9 10^3/uL (0.1-1.4); ABSOLUTE NEUT (AUTO) 9.9 10^3/uL (1.7-8.2); BASOPHILS % (AUTO) 0.5 % (0-2); EOSINOPHILS % (AUTO) 0.5 % (0-6); HEMATOCRIT 30.9 % (36.0-47.0); HEMOGLOBIN 10.6 g/dL (12.0-15.5); HGB HCT DIFFERENCE 0.9; LYMPHOCYTES % (AUTO) 6.1 % (13-45); MEAN CORPUSCULAR HEMOGLOBIN 34.5 pg (27.0-33.4); MEAN CORPUSCULAR HGB CONC 34.4 g/dL (32.0-36.0); MEAN CORPUSCULAR VOLUME 100 fl (80-97); MONOCYTES % (AUTO) 7.9 % (3-13); RED BLOOD COUNT 3.08 10^6/uL (3.72-5.28); RED CELL DISTRIBUTION WIDTH 13.6 % (11.5-14.0); WHITE BLOOD COUNT 11.6 10^3/uL (4.0-10.5)
[2016-08-09] MEDS: LANSOPRAZOLE 15 MG TAB.RAP.DR PO SCH ×2 (06:19→18:36)
[2016-08-09 06:31] LABS: ANION GAP 11 (5-19); BLOOD UREA NITROGEN 10 mg/dL (7-20); CARBON DIOXIDE 24 mmol/L (22-30); CHLORIDE 105 mmol/L (98-107); CREATININE RESULT 0.83 mg/dL (0.52-1.25); GLUCOSE 151 mg/dL (75-110); POTASSIUM 4.3 mmol/L (3.6-5.0); SODIUM 139.8 mmol/L (137-145)
[2016-08-09] MEDS ORDERED: BISACODYL 10 MG SUPP.RECT PR PRN (07:38)
[2016-08-09] MEDS: IPRATROPIUM/ALBUTEROL 0.5-2.5 MG/3 ML AMPUL NEB SCH ×4 (08:38→20:24)
[2016-08-09] MEDS: POLYETHYLENE GLYCOL 3350 POWDER 17 GM/1 PACKET PO SCH (11:22)
[2016-08-09] MEDS: LACTOBACILLUS ACIDOPHILUS 250 MG TAB PO SCH ×2 (11:23→18:36)
[2016-08-09] MEDS: OMEGA-3 ACID ETHYL ESTERS 1 GM CAPSULE PO SCH ×2 (11:23→21:26)
[2016-08-09] MEDS: LORATADINE 10 MG TABLET PO SCH (11:23)
[2016-08-09] MEDS: LEVOTHYROXINE SODIUM 0.1 MG TABLET PO SCH (11:24)
[2016-08-09] MEDS: ENOXAPARIN SODIUM INJ 40 MG/0.4 ML DISP.SYRIN SUBCUT SCH (11:32)
[2016-08-09 12:09] LABS: APPEARANCE,URINE CLEAR; BILIRUBIN,URINE NEGATIVE (NEGATIVE); GLUCOSE, URINE NEGATIVE (NEGATIVE); KETONES,URINE NEGATIVE (NEGATIVE); LEUKOCYTE ESTERASE,URINE NEGATIVE (NEGATIVE); NITRITE,URINE NEGATIVE (NEGATIVE); PROTEIN,URINE 30 mg/dL (NEGATIVE); URINE SPECIFIC GRAVITY 1.009
[2016-08-09] MEDS: FLUTICASONE NASAL SPRAY 50 MCG/SPRY 120 SPRAY/16 GM NASL SCH (15:20)
--- NOTE | 2016-08-09 15:50 | PDOC PROGRESS REPORT ---
Subjective Progress Note for:: 08/09/16 Subjective:: Patient seen earlier today on morning rounds. Patient reports she's breathing better than yesterday. She is resting comfortably. Her mental retardation does limit the full review of systems. She denies any complaints. Nursing reports patient has not had a good bowel movement. Physical Exam Vital Signs: Temp Pulse Resp BP Pulse Ox 98.5 F 68 20 104/47 L 97 08/09/16 07:38 08/09/16 11:52 08/09/16 11:52 08/09/16 07:38 08/09/16 11:52 Intake & Output 08/08/16 08/09/16 08/10/16 06:59 06:59 06:59 Intake Total 1400 2377 Output Total 3426 2720 Balance -2024 Weight 69.1 kg 69 kg Exam: General: Awake alert and answers questions somewhat appropriately, no acute respiratory distress HEENT: AT/NC, PERRL, EOMI, oropharynx is moist, pink, no scleral icterus, no conjunctival injection Neck: No JVD, trachea midline Chest: Clear to auscultation bilaterally CV: Regular rate and rhythm, normal S1 and S2, no rub or gallop; +3/6 sm rusb Abdomen: Soft, nontender to palpation, nondistended, active bowel sounds; no rebound, rigidity, or guarding Extremities: No cyanosis, clubbing or edema Neuro: Cranial nerves II through XII are grossly intact without focal deficits Psych: Normal mood and affect Results Laboratory Results: 08/09/16 05:35 08/09/16 05:35 08/09/16 08/09/16 08/09/16 05:35 05:35 11:30 WBC 11.6 H RBC 3.08 L Hgb 10.6 L Hct 30.9 L MCV 100 H MCH 34.5 H MCHC 34.4 RDW 13.6 Plt Count 156 Seg Neutrophils % 85.0 H Lymphocytes % 6.1 L Monocytes % 7.9 Eosinophils % 0.5 Basophils % 0.5 Absolute Neutrophils 9.9 H Absolute Lymphocytes 0.7 Absolute Monocytes 0.9 Absolute Eosinophils 0.1 Absolute Basophils 0.1 Sodium 139.8 Potassium 4.3 Chloride 105 Carbon Dioxide 24 Anion Gap 11 BUN 10 Creatinine 0.83 Est GFR ( Amer) > 60 Est GFR (Non-Af Amer) > 60 Glucose 151 H Calcium 9.0 Urine Color YELLOW Urine Appearance CLEAR Urine pH 6.0 Ur Specific [place] 1.009 Urine Protein 30 H Urine Glucose (UA) NEGATIVE Urine Ketones NEGATIVE Urine Blood SMALL H Urine Nitrite NEGATIVE Ur Leukocyte Esterase NEGATIVE Urine WBC (Auto) 3 Urine RBC (Auto) 8 08/06/16 08/07/16 21:38 03:40 Troponin I 0.012 0.017 Impressions: Chest X-Ray 08/06/16 00:00 IMPRESSION: Limited study. No acute changes Head CT 08/06/16 14:32 IMPRESSION: Motion artifact. No acute changes. Chest/Abdomen CTA 08/06/16 16:47 IMPRESSION: 1. Mild reticular nodularity and interstitial prominence of the right upper lobe may indicate chronic interstitial lung disease or atypical pneumonia. No evidence of pulmonary embolus. 2. No acute or suspicious findings of the abdomen. Abdomen/Pelvis CT 08/06/16 16:48 IMPRESSION: 1. Mild reticular nodularity and interstitial prominence of the right upper lobe may indicate chronic interstitial lung disease or atypical pneumonia. No evidence of pulmonary embolus. 2. No acute or suspicious findings of the abdomen. Assessment & Plan - Diagnosis (1) Sepsis Qualifiers: Sepsis type: sepsis due to unspecified organism Qualified Code(s): A41.9 - Sepsis, unspecified organism Is this a current diagnosis for this admission?: YesPlan: Secondary to underlying right upper lobe pneumonia. (2) Altered mental status Qualifiers: Altered mental status type: disorientation Qualified Code(s): R41.0 - Disorientation, unspecified Is this a current diagnosis for this admission?: YesPlan: Feel this is likely secondary to sepsis. Patient appears to be at baseline. Will place bed alarm and discontinue sitter. (3) Pneumonia Qualifiers: Pneumonia type: due to unspecified organism Laterality: right Lung location: upper lobe of lung Qualified Code(s): J18.1 - Lobar pneumonia, unspecified organism Is this a current diagnosis for this admission?: YesPlan: Patient receiving treatment for community-acquired pneumonia with concern for an atypical organism. Patient on Rocephin and Levaquin, day #4 of 10. On guaifenesin and pulmonary toilet. Thus far, unable to obtain sputum culture. (4) Down syndrome Is this a current diagnosis for this admission?: YesPlan: Will place on bed alarm. Supportive care. (5) Hypothyroidism Qualifiers: Hypothyroidism type: unspecified Qualified Code(s): E03.9 - Hypothyroidism, unspecified Is this a current diagnosis for this admission?: YesPlan: Patient's TSH is found to be elevated and her free T4 and free T3 are found to be low. Now on 100 g of Synthroid by mouth every 6 a.m. Recommend repeat follow-up thyroid testing in 4-6 weeks. (6) Hypotension Qualifiers: Hypotension type: unspecified hypotension type Qualified Code(s): I95.9 - Hypotension, unspecified Is this a current diagnosis for this admission?: YesPlan: This has resolved. Stop IV fluids (7) Tardive dyskinesia Is this a current diagnosis for this admission?: YesPlan: Will place patient on 50 mg of Benadryl by mouth daily at bedtime. Movements appear to have resolved now that Risperdal and Cogentin have been stopped. (8) Aortic regurgitation Qualifiers: Cardiac valve disease etiology: etiology unspecified Qualified Code( s): I35.1 - Nonrheumatic aortic (valve) insufficiency Is this a current diagnosis for this admission?: Yes (9) Hypernatremia Is this a current diagnosis for this admission?: YesPlan: Secondary to intravascular volume depletion. (10) Acute hypoxemic respiratory failure Is this a current diagnosis for this admission?: YesPlan: Continue oxygen to maintain saturation greater than 94%. Secondary to underlying pneumonia. (11) Obesity Qualifiers: Obesity type: due to excess calories Obesity severity: unspecified obesity severity Qualified Code(s): E66.09 - Other obesity due to excess calories Is this a current diagnosis for this admission?: Yes - Time Time Spent with patient: 25-34 minutes Medications reviewed and adjusted accordingly: Yes
[2016-08-09] MEDS: CEFTRIAXONE 1 GM/D5W RTU 1 GM/50 ML RTUPB IV SCH (18:37)
[2016-08-09] MEDS: LEVOFLOXACIN 750 MG TABLET PO SCH (21:26)
[2016-08-09] MEDS: DIPHENHYDRAMINE HCL 50 MG CAPSULE PO SCH (21:27)
[2016-08-10] MEDS: LANSOPRAZOLE 15 MG TAB.RAP.DR PO SCH ×2 (05:30→18:01)
[2016-08-10 05:56] LABS: ABSOLUTE BASOPHILS # (AUTO) 0.1 10^3/uL (0.0-0.2); ABSOLUTE EOSINOPHILS # (AUTO) 0.1 10^3/uL (0.0-0.6); ABSOLUTE LYMPHOCYTES (AUTO) 0.7 10^3/uL (0.5-4.7); ABSOLUTE MONOCYTES (AUTO) 0.9 10^3/uL (0.1-1.4); ABSOLUTE NEUT (AUTO) 8.9 10^3/uL (1.7-8.2); BASOPHILS % (AUTO) 0.5 % (0-2); EOSINOPHILS % (AUTO) 0.8 % (0-6); HEMATOCRIT 29.3 % (36.0-47.0); HEMOGLOBIN 10.3 g/dL (12.0-15.5); HGB HCT DIFFERENCE 1.6; LYMPHOCYTES % (AUTO) 6.5 % (13-45); MEAN CORPUSCULAR HGB CONC 35.1 g/dL (32.0-36.0); MEAN CORPUSCULAR VOLUME 100 fl (80-97); MONOCYTES % (AUTO) 8.6 % (3-13); RED BLOOD COUNT 2.94 10^6/uL (3.72-5.28); RED CELL DISTRIBUTION WIDTH 13.2 % (11.5-14.0); SEGMENTED NEUTROPHILS % (AUTO) 83.6 % (42-78); WHITE BLOOD COUNT 10.6 10^3/uL (4.0-10.5)
[2016-08-10 06:11] LABS: ANION GAP 11 (5-19); BLOOD UREA NITROGEN 9 mg/dL (7-20); CALCIUM 8.7 mg/dL (8.4-10.2); CARBON DIOXIDE 24 mmol/L (22-30); CHLORIDE 106 mmol/L (98-107); CREATININE RESULT 0.78 mg/dL (0.52-1.25); GLUCOSE 144 mg/dL (75-110); POTASSIUM 4.1 mmol/L (3.6-5.0); SODIUM 140.7 mmol/L (137-145)
[2016-08-10] MEDS: IPRATROPIUM/ALBUTEROL 0.5-2.5 MG/3 ML AMPUL NEB SCH ×4 (08:26→20:29)
[2016-08-10] MEDS: LEVOTHYROXINE SODIUM 0.1 MG TABLET PO SCH (09:45)
[2016-08-10] MEDS: POLYETHYLENE GLYCOL 3350 POWDER 17 GM/1 PACKET PO SCH (09:45)
[2016-08-10] MEDS: OMEGA-3 ACID ETHYL ESTERS 1 GM CAPSULE PO SCH ×2 (09:46→21:42)
[2016-08-10] MEDS: LORATADINE 10 MG TABLET PO SCH (09:46)
[2016-08-10] MEDS: LACTOBACILLUS ACIDOPHILUS 250 MG TAB PO SCH ×2 (09:48→18:01)
[2016-08-10] MEDS: ENOXAPARIN SODIUM INJ 40 MG/0.4 ML DISP.SYRIN SUBCUT SCH (09:49)
[2016-08-10] MEDS: FLUTICASONE NASAL SPRAY 50 MCG/SPRY 120 SPRAY/16 GM NASL SCH (09:52)
--- NOTE | 2016-08-10 15:08 | PDOC PROGRESS REPORT ---
Subjective Progress Note for:: 08/10/16 Subjective:: Patient seen earlier today on morning rounds. Patient reports she's breathing better than yesterday. She is sitting in the chair comfortably. Her mental retardation does limit the full review of systems. She denies any complaints. Nursing reports patient has had a good bowel movement. Physical Exam Vital Signs: Temp Pulse Resp BP Pulse Ox 98.5 F 83 16 101/53 L 97 08/10/16 05:08 08/10/16 05:08 08/10/16 05:08 08/10/16 05:08 08/10/16 05:08 Intake & Output 08/09/16 08/10/16 08/11/16 06:59 06:59 06:59 Intake Total 2377 1258 Output Total 2720 900 Balance -343 358 Weight 69 kg 68.6 kg Exam: General: Awake alert and answers questions somewhat appropriately, no acute respiratory distress HEENT: AT/NC, PERRL, EOMI, oropharynx is moist, pink, no scleral icterus, no conjunctival injection Neck: No JVD, trachea midline Chest: Rhonchi right upper lobe CV: Regular rate and rhythm, normal S1 and S2, no rub or gallop; +3/6 sm rusb Abdomen: Soft, nontender to palpation, nondistended, active bowel sounds; no rebound, rigidity, or guarding Extremities: No cyanosis, clubbing or edema Neuro: Cranial nerves II through XII are grossly intact without focal deficits Psych: Normal mood and affect Results Laboratory Results: 08/10/16 05:46 08/10/16 05:46 08/09/16 08/10/16 08/10/16 11:30 05:46 05:46 WBC 10.6 H RBC 2.94 L Hgb 10.3 L Hct 29.3 L MCV 100 H MCH 35.0 H MCHC 35.1 RDW 13.2 Plt Count 161 Seg Neutrophils % 83.6 H Lymphocytes % 6.5 L Monocytes % 8.6 Eosinophils % 0.8 Basophils % 0.5 Absolute Neutrophils 8.9 H Absolute Lymphocytes 0.7 Absolute Monocytes 0.9 Absolute Eosinophils 0.1 Absolute Basophils 0.1 Sodium 140.7 Potassium 4.1 Chloride 106 Carbon Dioxide 24 Anion Gap 11 BUN 9 Creatinine 0.78 Est GFR ( Amer) > 60 Est GFR (Non-Af Amer) > 60 Glucose 144 H Calcium 8.7 Urine Color YELLOW Urine Appearance CLEAR Urine pH 6.0 Ur Specific [place] 1.009 Urine Protein 30 H Urine Glucose (UA) NEGATIVE Urine Ketones NEGATIVE Urine Blood SMALL H Urine Nitrite NEGATIVE Ur Leukocyte Esterase NEGATIVE Urine WBC (Auto) 3 Urine RBC (Auto) 8 08/06/16 08/07/16 21:38 03:40 Troponin I 0.012 0.017 Impressions: Chest X-Ray 08/06/16 00:00 IMPRESSION: Limited study. No acute changes Head CT 08/06/16 14:32 IMPRESSION: Motion artifact. No acute changes. Chest/Abdomen CTA 08/06/16 16:47 IMPRESSION: 1. Mild reticular nodularity and interstitial prominence of the right upper lobe may indicate chronic interstitial lung disease or atypical pneumonia. No evidence of pulmonary embolus. 2. No acute or suspicious findings of the abdomen. Abdomen/Pelvis CT 08/06/16 16:48 IMPRESSION: 1. Mild reticular nodularity and interstitial prominence of the right upper lobe may indicate chronic interstitial lung disease or atypical pneumonia. No evidence of pulmonary embolus. 2. No acute or suspicious findings of the abdomen. Assessment & Plan - Diagnosis (1) Sepsis Qualifiers: Sepsis type: sepsis due to unspecified organism Qualified Code(s): A41.9 - Sepsis, unspecified organism Is this a current diagnosis for this admission?: YesPlan: Improved. Secondary to underlying right upper lobe pneumonia. (2) Altered mental status Qualifiers: Altered mental status type: disorientation Qualified Code(s): R41.0 - Disorientation, unspecified Is this a current diagnosis for this admission?: YesPlan: Secondary to sepsis. Patient appears to be at baseline. Bed alarm. (3) Pneumonia Qualifiers: Pneumonia type: due to unspecified organism Laterality: right Lung location: upper lobe of lung Qualified Code(s): J18.1 - Lobar pneumonia, unspecified organism Is this a current diagnosis for this admission?: YesPlan: Patient receiving treatment for community-acquired pneumonia with concern for an atypical organism. Patient on Rocephin and Levaquin, day #5 of 10. On guaifenesin and pulmonary toilet. Thus far, unable to obtain sputum culture. Patient improving, and will ambulate to assess for return for baseline. (4) Down syndrome Is this a current diagnosis for this admission?: YesPlan: Will place on bed alarm. Supportive care. (5) Hypothyroidism Qualifiers: Hypothyroidism type: unspecified Qualified Code(s): E03.9 - Hypothyroidism, unspecified Is this a current diagnosis for this admission?: YesPlan: Patient's TSH is found to be elevated and her free T4 and free T3 are found to be low. Now on 100 g of Synthroid by mouth every 6 a.m. Recommend repeat follow-up thyroid testing in 4-6 weeks. (6) Hypotension Qualifiers: Hypotension type: unspecified hypotension type Qualified Code(s): I95.9 - Hypotension, unspecified Is this a current diagnosis for this admission?: YesPlan: This has improved. Encourage oral intake (7) Tardive dyskinesia Is this a current diagnosis for this admission?: YesPlan: Will place patient on 50 mg of Benadryl by mouth daily at bedtime. Movements appear to have resolved now that Risperdal and Cogentin have been stopped. (8) Aortic regurgitation Qualifiers: Cardiac valve disease etiology: etiology unspecified Qualified Code( s): I35.1 - Nonrheumatic aortic (valve) insufficiency Is this a current diagnosis for this admission?: Yes (9) Hypernatremia Is this a current diagnosis for this admission?: Yes (10) Acute hypoxemic respiratory failure Is this a current diagnosis for this admission?: YesPlan: Continue oxygen to maintain saturation greater than 94%. Secondary to underlying pneumonia. (11) Obesity Qualifiers: Obesity type: due to excess calories Obesity severity: unspecified obesity severity Qualified Code(s): E66.09 - Other obesity due to excess calories Is this a current diagnosis for this admission?: Yes - Time Time Spent with patient: 25-34 minutes Medications reviewed and adjusted accordingly: Yes Anticipated discharge: Home Within: within 48 hours
[2016-08-10] MEDS: CEFTRIAXONE 1 GM/D5W RTU 1 GM/50 ML RTUPB IV SCH ×2 (18:32→19:02)
[2016-08-10] MEDS: LEVOFLOXACIN 750 MG TABLET PO SCH (21:42)
[2016-08-10] MEDS: DIPHENHYDRAMINE HCL 50 MG CAPSULE PO SCH (21:43)
[2016-08-11] MEDS: LANSOPRAZOLE 15 MG TAB.RAP.DR PO SCH ×2 (05:22→17:35)
[2016-08-11] MEDS: LEVOTHYROXINE SODIUM 0.1 MG TABLET PO SCH (08:12)
[2016-08-11] MEDS: FLUTICASONE NASAL SPRAY 50 MCG/SPRY 120 SPRAY/16 GM NASL SCH (08:15)
[2016-08-11] MEDS: IPRATROPIUM/ALBUTEROL 0.5-2.5 MG/3 ML AMPUL NEB SCH ×4 (08:26→20:12)
[2016-08-11] MEDS: LACTOBACILLUS ACIDOPHILUS 250 MG TAB PO SCH ×2 (10:45→17:35)
[2016-08-11] MEDS: LORATADINE 10 MG TABLET PO SCH (10:45)
[2016-08-11] MEDS: OMEGA-3 ACID ETHYL ESTERS 1 GM CAPSULE PO SCH ×2 (10:45→21:57)
[2016-08-11] MEDS: POLYETHYLENE GLYCOL 3350 POWDER 17 GM/1 PACKET PO SCH (10:45)
--- NOTE | 2016-08-11 15:21 | PDOC PROGRESS REPORT ---
Subjective Progress Note for:: 08/11/16 Subjective:: Patient seen earlier today on morning rounds. Patient reports she's breathing better than yesterday. She is sitting in the chair comfortably. Her mental retardation does limit the full review of systems. She denies any complaints. Physical Exam Vital Signs: Temp Pulse Resp BP Pulse Ox 98.5 F 74 19 125/99 H 98 08/11/16 07:19 08/11/16 07:19 08/11/16 07:19 08/11/16 07:19 08/11/16 07:19 Intake & Output 08/10/16 08/11/16 08/12/16 06:59 06:59 06:59 Intake Total 1258 1230 Output Total 900 Balance 358 1230 Weight 68.6 kg 68.8 kg Exam: General: Awake alert and answers questions somewhat appropriately, no acute respiratory distress HEENT: AT/NC, PERRL, right eye strabismus, oropharynx is moist, pink, no scleral icterus, no conjunctival injection Neck: No JVD, trachea midline Chest: Occasional rhonchi right upper lobe CV: Regular rate and rhythm, normal S1 and S2, no rub or gallop; +3/6 sm rusb Abdomen: Soft, nontender to palpation, nondistended, active bowel sounds; no rebound, rigidity, or guarding Extremities: No cyanosis, clubbing or edema Neuro: Cranial nerves II through XII are grossly intact; right eye strabismus Psych: Normal mood and affect Results Laboratory Results: 08/10/16 05:46 08/10/16 05:46 08/06/16 08/07/16 21:38 03:40 Troponin I 0.012 0.017 Impressions: Chest X-Ray 08/06/16 00:00 IMPRESSION: Limited study. No acute changes Head CT 08/06/16 14:32 IMPRESSION: Motion artifact. No acute changes. Chest/Abdomen CTA 08/06/16 16:47 IMPRESSION: 1. Mild reticular nodularity and interstitial prominence of the right upper lobe may indicate chronic interstitial lung disease or atypical pneumonia. No evidence of pulmonary embolus. 2. No acute or suspicious findings of the abdomen. Abdomen/Pelvis CT 08/06/16 16:48 IMPRESSION: 1. Mild reticular nodularity and interstitial prominence of the right upper lobe may indicate chronic interstitial lung disease or atypical pneumonia. No evidence of pulmonary embolus. 2. No acute or suspicious findings of the abdomen. Assessment & Plan - Diagnosis (1) Sepsis Qualifiers: Sepsis type: sepsis due to unspecified organism Qualified Code(s): A41.9 - Sepsis, unspecified organism Is this a current diagnosis for this admission?: YesPlan: Improved. Secondary to underlying right upper lobe pneumonia. (2) Altered mental status Qualifiers: Altered mental status type: disorientation Qualified Code(s): R41.0 - Disorientation, unspecified Is this a current diagnosis for this admission?: YesPlan: Secondary to sepsis. Patient appears to be at baseline. Bed alarm. (3) Pneumonia Qualifiers: Pneumonia type: due to unspecified organism Laterality: right Lung location: upper lobe of lung Qualified Code(s): J18.1 - Lobar pneumonia, unspecified organism Is this a current diagnosis for this admission?: YesPlan: Patient receiving treatment for community-acquired pneumonia with concern for an atypical organism. Patient on Rocephin and Levaquin, day #6 of 10. Stop Rocephin today. On guaifenesin and pulmonary toilet. Thus far, unable to obtain sputum culture. Patient improving, and will ambulate to assess for return for baseline. (4) Down syndrome Is this a current diagnosis for this admission?: YesPlan: Will place on bed alarm. Supportive care. (5) Hypothyroidism Qualifiers: Hypothyroidism type: unspecified Qualified Code(s): E03.9 - Hypothyroidism, unspecified Is this a current diagnosis for this admission?: YesPlan: Patient's TSH is found to be elevated and her free T4 and free T3 are found to be low. Now on 100 g of Synthroid by mouth every 6 a.m. Recommend repeat follow-up thyroid testing in 4-6 weeks. (6) Hypotension Qualifiers: Hypotension type: unspecified hypotension type Qualified Code(s): I95.9 - Hypotension, unspecified Is this a current diagnosis for this admission?: YesPlan: This has improved. Encourage oral intake (7) Tardive dyskinesia Is this a current diagnosis for this admission?: YesPlan: Will place patient on 50 mg of Benadryl by mouth daily at bedtime. Movements appear to have resolved now that Risperdal and Cogentin have been stopped. Patient has exhibited no evidence here of behavioral disturbance. (8) Aortic regurgitation Qualifiers: Cardiac valve disease etiology: etiology unspecified Qualified Code( s): I35.1 - Nonrheumatic aortic (valve) insufficiency Is this a current diagnosis for this admission?: YesPlan: Will consider repeat echocardiography. (9) Hypernatremia Is this a current diagnosis for this admission?: YesPlan: Secondary to intravascular volume depletion. (10) Acute hypoxemic respiratory failure Is this a current diagnosis for this admission?: YesPlan: Currently resolved. Continue oxygen to maintain saturation greater than 94%. Secondary to underlying pneumonia. (11) Obesity Qualifiers: Obesity type: due to excess calories Obesity severity: unspecified obesity severity Qualified Code(s): E66.09 - Other obesity due to excess calories Is this a current diagnosis for this admission?: Yes - Time Time Spent with patient: 25-34 minutes Medications reviewed and adjusted accordingly: Yes
[2016-08-11] MEDS: LEVOFLOXACIN 750 MG TABLET PO SCH (21:57)
[2016-08-11] MEDS: DIPHENHYDRAMINE HCL 50 MG CAPSULE PO SCH (21:57)
[2016-08-12] MEDS: LANSOPRAZOLE 15 MG TAB.RAP.DR PO SCH ×2 (05:48→17:31)
[2016-08-12] MEDS: IPRATROPIUM/ALBUTEROL 0.5-2.5 MG/3 ML AMPUL NEB SCH ×4 (08:45→20:27)
[2016-08-12] MEDS: OMEGA-3 ACID ETHYL ESTERS 1 GM CAPSULE PO SCH ×2 (09:48→22:16)
[2016-08-12] MEDS: LORATADINE 10 MG TABLET PO SCH (09:49)
[2016-08-12] MEDS: LACTOBACILLUS ACIDOPHILUS 250 MG TAB PO SCH ×2 (09:49→17:31)
[2016-08-12] MEDS: LEVOTHYROXINE SODIUM 0.1 MG TABLET PO SCH (09:49)
[2016-08-12] MEDS: POLYETHYLENE GLYCOL 3350 POWDER 17 GM/1 PACKET PO SCH (09:49)
--- NOTE | 2016-08-12 12:24 | PDOC PROGRESS REPORT ---
Subjective Progress Note for:: 08/12/16 Subjective:: Patient apparently screams when being moved out of the bed and being paced by the bed. There is reported soft stools but not watery. No reported temperature spikes or respiratory distress. Able to ambulate with assistance. No reported nausea or vomiting. Tolerating oral intake. Complains of some abdominal discomfort. Physical Exam Vital Signs: Temp Pulse Resp BP Pulse Ox 97.4 F 61 16 87/67 L 93 08/12/16 11:26 08/12/16 11:54 08/12/16 11:54 08/12/16 11:26 08/12/16 11:54 Intake & Output 08/11/16 08/12/16 08/13/16 06:59 06:59 06:59 Intake Total 1230 765 Balance 1230 765 Weight 68.8 kg 68.7 kg General appearance: PRESENT: no acute distress, obese Head exam: PRESENT: normocephalic Eye exam: PRESENT: EOMI Mouth exam: PRESENT: moist, neck supple Neck exam: ABSENT: JVD Respiratory exam: PRESENT: clear to auscultation jackie, unlabored Cardiovascular exam: PRESENT: RRR. ABSENT: gallop GI/Abdominal exam: PRESENT: hypoactive bowel sounds, soft. ABSENT: tenderness Extremities exam: ABSENT: pedal edema Neurological exam: PRESENT: alert, awake Skin exam: PRESENT: dry, warm. ABSENT: cyanosis Results Laboratory Results: 08/10/16 05:46 08/10/16 05:46 08/06/16 08/07/16 21:38 03:40 Troponin I 0.012 0.017 Impressions: Chest X-Ray 08/06/16 00:00 IMPRESSION: Limited study. No acute changes Head CT 08/06/16 14:32 IMPRESSION: Motion artifact. No acute changes. Chest/Abdomen CTA 08/06/16 16:47 IMPRESSION: 1. Mild reticular nodularity and interstitial prominence of the right upper lobe may indicate chronic interstitial lung disease or atypical pneumonia. No evidence of pulmonary embolus. 2. No acute or suspicious findings of the abdomen. Abdomen/Pelvis CT 08/06/16 16:48 IMPRESSION: 1. Mild reticular nodularity and interstitial prominence of the right upper lobe may indicate chronic interstitial lung disease or atypical pneumonia. No evidence of pulmonary embolus. 2. No acute or suspicious findings of the abdomen. Assessment & Plan - Diagnosis (1) Acute hypoxemic respiratory failure Is this a current diagnosis for this admission?: Yes (2) Pneumonia Qualifiers: Pneumonia type: due to unspecified organism Laterality: right Lung location: upper lobe of lung Qualified Code(s): J18.1 - Lobar pneumonia, unspecified organism Is this a current diagnosis for this admission?: Yes (3) Sepsis Qualifiers: Sepsis type: sepsis due to unspecified organism Qualified Code(s): A41.9 - Sepsis, unspecified organism Is this a current diagnosis for this admission?: Yes (4) Tardive dyskinesia Is this a current diagnosis for this admission?: Yes (5) Aortic regurgitation Qualifiers: Cardiac valve disease etiology: etiology unspecified Qualified Code( s): I35.1 - Nonrheumatic aortic (valve) insufficiency Is this a current diagnosis for this admission?: Yes (6) Down syndrome Is this a current diagnosis for this admission?: Yes (7) Hypothyroidism Qualifiers: Hypothyroidism type: unspecified Qualified Code(s): E03.9 - Hypothyroidism, unspecified Is this a current diagnosis for this admission?: Yes (8) Obesity Qualifiers: Obesity type: due to excess calories Obesity severity: unspecified obesity severity Qualified Code(s): E66.09 - Other obesity due to excess calories Is this a current diagnosis for this admission?: Yes (9) Hyperlipidemia Qualifiers: Hyperlipidemia type: unspecified Qualified Code(s): E78.5 - Hyperlipidemia, unspecified Is this a current diagnosis for this admission?: Yes - Time Time Spent with patient: 25-34 minutes - Plan Summary Plan Summary: We will recheck WBC. Switch to oral antibiotics. Ambulate around with physical therapy. Consult business continuity planner for subacute rehabilitation. We will add lactobacillus. Continue supportive care.
[2016-08-12] MEDS: FLUTICASONE NASAL SPRAY 50 MCG/SPRY 120 SPRAY/16 GM NASL SCH (15:39)
[2016-08-12] MEDS: LEVOFLOXACIN 750 MG TABLET PO SCH (22:16)
[2016-08-12] MEDS: DIPHENHYDRAMINE HCL 50 MG CAPSULE PO SCH (22:16)
[2016-08-13] MEDS: LANSOPRAZOLE 15 MG TAB.RAP.DR PO SCH (05:25)
[2016-08-13 06:03] LABS: HEMATOCRIT 28.5 % (36.0-47.0); HGB HCT DIFFERENCE 1.5; MEAN CORPUSCULAR HEMOGLOBIN 34.7 pg (27.0-33.4); MEAN CORPUSCULAR HGB CONC 35.1 g/dL (32.0-36.0); MEAN CORPUSCULAR VOLUME 99 fl (80-97); RED BLOOD COUNT 2.88 10^6/uL (3.72-5.28); RED CELL DISTRIBUTION WIDTH 13.5 % (11.5-14.0); WHITE BLOOD COUNT 7.1 10^3/uL (4.0-10.5)
[2016-08-13] MEDS: IPRATROPIUM/ALBUTEROL 0.5-2.5 MG/3 ML AMPUL NEB SCH ×3 (08:12→15:48)
[2016-08-13] MEDS: OMEGA-3 ACID ETHYL ESTERS 1 GM CAPSULE PO SCH (10:06)
[2016-08-13] MEDS: LACTOBACILLUS ACIDOPHILUS 250 MG TAB PO SCH (10:06)
[2016-08-13] MEDS: LORATADINE 10 MG TABLET PO SCH (10:10)
[2016-08-13] MEDS: LEVOTHYROXINE SODIUM 0.1 MG TABLET PO SCH (10:10)
[2016-08-13] MEDS: POLYETHYLENE GLYCOL 3350 POWDER 17 GM/1 PACKET PO SCH (10:11)
[2016-08-13] MEDS: FLUTICASONE NASAL SPRAY 50 MCG/SPRY 120 SPRAY/16 GM NASL SCH (10:11)
[2016-08-13 12:43] VITALS: BP 109/43
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
== END 2016-08-13 17:30 | disposition other institution (70) | DRG 871 ==
LOC: ER 14:02 → EH 18:09 → 3W 08-07 00:25
PROVIDERS: ADMIT Family Medicine; ATTEND Family Medicine
PROC: 3E0F73Z Introduction of Anti-inflammatory into Respiratory Tract, Via Natural or Artificial Opening (ICD-10-PCS; 2016-08-07)
PROC: 5A09357 Assistance with Respiratory Ventilation, Less than 24 Consecutive Hours, Continuous Positive Airway Pressure (ICD-10-PCS; principal; 2016-08-08)
DX: A41.9 Sepsis, unspecified organism (principal); J18.1 Lobar pneumonia, unspecified organism; J96.01 Acute respiratory failure with hypoxia; E87.0 Hyperosmolality and hypernatremia; R65.20 Severe sepsis without septic shock; G24.01 Drug induced subacute dyskinesia; I35.1 Nonrheumatic aortic (valve) insufficiency; E03.9 Hypothyroidism, unspecified; E78.5 Hyperlipidemia, unspecified; F79 Unspecified intellectual disabilities; Q90.9 Down syndrome, unspecified; I95.9 Hypotension, unspecified; E66.09 Other obesity due to excess calories; Z68.29 Body mass index [BMI] 29.0-29.9, adult; Z79.899 Other long term (current) drug therapy; Z88.1 Allergy status to other antibiotic agents
CPT/HCPCS: 36415; 70450; 71010; 71275; 74177; 80048; 80053; 81001; 82550; 82553; 82570; 82803; 82962; 83605; 83930; 83935; 84300; 84439; 84443; 84481; 84484; 84703; 85025; 85027; 85610; 87040; 87086; 93005; 93010; 94640; 96360; 96361; 99291; 99292; G8978-GP; G8979-GP; G8980-GP; J0696; J1650; J1956; J3490; J7030; J7620